=== PATIENT | female | born 1975 | race Caucasian/White ===

== ENCOUNTER 2017-03-08 11:10 | Emergency (ER) | payer MEDICAID ==
[~2017-03-08] VITALS: Ht 152.4 cm; Wt 63.5 kg
[~2017-03-08 11:10] MED LIST: ALPR1TAB2 PO; LISI2.5T47 PO; PREG150C PO; QUET300T14 PO; [UNRECOGNIZED DRUG - OTHER]
[2017-03-08 11:34] VITALS: BP 115/95
== END 2017-03-08 13:52 | disposition home or self-care (01) ==
LOC: ER 11:10
DX: G89.29 Other chronic pain (principal); M54.5 Low back pain; M79.7 Fibromyalgia; I10 Essential (primary) hypertension; F17.210 Nicotine dependence, cigarettes, uncomplicated